=== PATIENT | female | born 2005 | race African-American/Black ===

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

== ENCOUNTER 2023-10-29 08:49 | Emergency (ER) | payer SELFPAY ==
[~2023-10-29] VITALS: Ht 162.6 cm; Wt 61.4 kg
[~2023-10-29 08:49] MED LIST changes: +APRESOLINE 10MG10 MG PO; +ASPIRIN 81M81 MG/TA2 PO; +FLEXERIL5 MG PO; +LIDODERM 5% PATC1 EA TP; +MINIPRESS 1M1 MG/CAP PO; +QUALITY CHOICE1 TA7; +TYLENOL 325MG325 MG PO; +ZOLOFT 100MG100 MG PO
[2023-10-29 08:56] VITALS: BP 115/65; TEMP 98.1
[2023-10-29] MEDS ORDERED: BACTRIM DS 8001 TAB PO (09:27)
[2023-10-29] MEDS ORDERED: ANECREAM15 TOP (09:27)
[2023-10-29 09:40] VITALS: PULSE 78
== END 2023-10-29 09:40 | disposition home or self-care (01) ==
LOC: COL.ER 08:49
DX: R10.2 Pelvic and perineal pain (principal); N89.8 Other specified noninflammatory disorders of vagina